=== PATIENT | female | born 1945 | race Caucasian/White ===

== ENCOUNTER 2018-06-05 06:35 | Emergency (ER) | payer MEDICARE ==
[~2018-06-05 06:35] MED LIST: KET10 PO; LOR5/325 PO; OXYC-689 PO
[2018-06-05] MEDS ORDERED: fentaNYL CITR 100 MCG/2 ML AMP IVP ONE (07:15)
[2018-06-05] MEDS ORDERED: DIPHTH/TETANUS/ACEL. PERTUSSIS IM ONE (07:15)
[2018-06-05 07:33] LABS: PLATELET COUNT, AUTOMATED 261 K/uL (150-450)
[2018-06-05] MEDS ORDERED: IOPAMIDOL 76% 150 ML INFUS BTL 150 ML ONE (07:36)
[2018-06-05 07:38] LABS: INR 0.91
[2018-06-05] MEDS ORDERED: KETAMINE HCL-NS 50 MG/5 ML SYR IVP ONE ×2 (07:45→08:25)
--- NOTE | 2018-06-05 08:05 | RADIOLOGY IMAGING REPORT ---
FACILITY: [facility] PATIENT NAME: Liza Costa : 1945 MR: [id number] V: [id number] EXAM DATE: ORDERING PHYSICIAN: BEULAH MOE TECHNOLOGIST: Location: [facility] Patient: Liza Costa : 1945 Visit/Account:[id number] Date of Sevice: 06/05/2018 SHOULDER 1 VIEW RIGHT HISTORY: Mid humerus ecchymoses. Evaluate for fracture. COMPARISON: None. TECHNIQUE: AP view of the right shoulder. FINDINGS: There is a mildly comminuted fracture through the surgical neck of the humerus and proximal humeral diaphysis. There is degenerative change of the acromioclavicular and glenohumeral joints. The visible thorax is normal. There are old fifth and sixth lateral right rib fractures. IMPRESSION: 1. Comminuted fracture involving the right humeral neck and proximal diaphysis. Report Dictated By: Arianna Gotti at 06/05/2018 7:52 AM Report E-Signed By: Arianna Gotti at 06/05/2018 8:01 AM WSN:[id number]
--- NOTE | 2018-06-05 08:23 | EKG ---
FACILITY: [facility] [place] PATIENT NAME: LALIT WELLINGTON : [id number] MR: [id number] V: [id number] EXAM DATE: ORDERING PHYSICIAN: BEULAH MOE TECHNOLOGIST: KATY Mulligan Reason : TRAUMA-FALL Blood Pressure : / mmHG Vent. Rate : 083 BPM Atrial Rate : 083 BPM P-R Int : 138 ms QRS Dur : 076 ms QT Int : 378 ms P-R-T Axes : 075 048 052 degrees QTc Int : 444 ms Sinus rhythm with premature atrial complexes Nonspecific ST and T wave abnormality Abnormal ECG No previous ECGs available Confirmed by JESUSITA PATEL ([id number]) on 06/05/2018 12:33:25 PM Referred By: ABHI Confirmed By:JESUSITA PATEL
--- NOTE | 2018-06-05 08:59 | RADIOLOGY IMAGING REPORT ---
[place] [facility] [place] Liza Costa : 1945 MR: [id number] V: [id number] EXAM DATE: ORDERING PHYSICIAN: BEULAH MOE TECHNOLOGIST: Location: [facility] [place] Patient: Liza Costa : 1945 Visit/Account:[id number] Date of Sevice: 06/05/2018 HUMERUS RIGHT Indication: Pain after fall Comparison: None Available FINDINGS: There is a mildly comminuted oblique fracture of the surgical neck of the humeral head. There is appr oximately one bone's width of displacement. There is no focal soft tissue abnormality. No evidence of radiopaque foreign body. IMPRESSION: Comminuted mildly displaced oblique fracture of the humeral neck Report Dictated By: Vlad Mcmahon at 06/05/2018 8:54 AM Report E-Signed By: Vlad Mcmahon at 06/05/2018 8:55 AM WSN:[id number]
--- NOTE | 2018-06-05 09:03 | RADIOLOGY IMAGING REPORT ---
FAC[facility] PATIENT NAME: Liza Costa : 1945 MR: [id number] V: [id number] EXAM DATE: ORDERING PHYSICIAN: BEULAH MOE TECHNOLOGIST: Location: [facility] [place] Patient: Liza Costa : 1945 Visit/Account:[id number] Date of Sevice: 06/05/2018 CT Head without contrast and CT Cervical spine: Indication: Fall Comparison: None available Technique: CT head: Axial CT images were obtained through the brain from the skull base to the verte x without administration of IV contrast. Reformatted coronal and sagittal images were also obtained. Technique: CT cervical spine: Axial CT imaging of the cervical spine was performed. 2-D sagittal and coronal CT reformats were also obtained. One of the following dose optimization techniques was utilized in the performance of this exam: autom ated exposure control; adjustment of the mA and/or kV according to the patient's size; or use of an i terative reconstruction technique. Specific details can be referenced in the facility's radiology CT exam operational policy. FINDINGS: CT head: No evidence of mass, mass effect, or midline shift. No acute intracranial hemorrhage or acute territorial infarction. There are moderate periventricular deep white matter chronic ischemic changes. There is a focal hypodensity within the right basal ganglia consistent with remote lacunar infarct The visualized paranasal sinuses and mastoid air cells are clear. CT cervical spine: No cervical spine fracture or acute subluxation is identified.. The prevertebral soft tissues appear unremarkable. The vertebral body heights are well maintained. Severe degenerative disc space disease noted at C5-6 with posteriorly projecting osteophytes causing moderate central canal stenosis and severe left-sided neural foraminal narrowing There are extensive carotid calcifications, there is a dense circumferential calcification noted at t he left carotid bulb. IMPRESSION: 1. No acute intracranial abnormality. 2. No acute osseous or acute alignment abnormality of the cervical spine. 3. Incidental findings as described Report Dictated By: Vlad Mcmahon at 06/05/2018 8:56 AM Report E-Signed By: Vlad Mcmahon at 06/05/2018 9:00 AM WSN:[id number]
--- NOTE | 2018-06-05 09:04 | RADIOLOGY IMAGING REPORT ---
[place] [facility] [place]: Liza Costa : 1945 MR: [id number] V: [id number] EXAM DATE: ORDERING PHYSICIAN: BEULAH MOE TECHNOLOGIST: Location: [facility] Patient: Liza Costa : 1945 Visit/Account:[id number] Date of Sevice: 06/05/2018 CT Head without contrast and CT Cervical spine: Indication: Fall Comparison: None available Technique: CT head: Axial CT images were obtained through the brain from the skull base to the verte x without administration of IV contrast. Reformatted coronal and sagittal images were also obtained. Technique: CT cervical spine: Axial CT imaging of the cervical spine was performed. 2-D sagittal and coronal CT reformats were also obtained. One of the following dose optimization techniques was utilized in the performance of this exam: autom ated exposure control; adjustment of the mA and/or kV according to the patient's size; or use of an i terative reconstruction technique. Specific details can be referenced in the facility's radiology CT exam operational policy. FINDINGS: CT head: No evidence of mass, mass effect, or midline shift. No acute intracranial hemorrhage or acute territorial infarction. There are moderate periventricular deep white matter chronic ischemic changes. There is a focal hypodensity within the right basal ganglia consistent with remote lacunar infarct The visualized paranasal sinuses and mastoid air cells are clear. CT cervical spine: No cervical spine fracture or acute subluxation is identified.. The prevertebral soft tissues appear unremarkable. The vertebral body heights are well maintained. Severe degenerative disc space disease noted at C5-6 with posteriorly projecting osteophytes causing moderate central canal stenosis and severe left-sided neural foraminal narrowing There are extensive carotid calcifications, there is a dense circumferential calcification noted at t he left carotid bulb. IMPRESSION: 1. No acute intracranial abnormality. 2. No acute osseous or acute alignment abnormality of the cervical spine. 3. Incidental findings as described Report Dictated By: Vlad Mcmahon at 06/05/2018 8:56 AM Report E-Signed By: Vlad Mcmahon at 06/05/2018 9:00 AM WSN:[id number]
--- NOTE | 2018-06-05 09:17 | RADIOLOGY IMAGING REPORT ---
FACILITY: [facility] PATIENT NAME: Liza Costa : 1945 MR: [id number] V: [id number] EXAM DATE: ORDERING PHYSICIAN: BEULAH MOE TECHNOLOGIST: Location: [facility] Patient: Liza Costa : 1945 Visit/Account:[id number] Date of Sevice: 06/05/2018 CT CHEST ABDOMEN PELVIS W/CON HISTORY: fall, flank and back ecchymosis, c=spine pain TECHNIQUE: CT chest, abdomen and pelvis with intravenous contrast. One of the following dose optimization techniques was utilized in the performance of this exam: Autom ated exposure control; adjustment of the mA and/or kV according to the patient's size; or use of an i terative reconstruction technique. Specific details can be referenced in the facility's radiology C T exam operational policy. CONTRAST: 85 mL Isovue-370 COMPARISON: CT chest 02/05/2014 FINDINGS: CHEST: Heart/vessels: The heart is normal in size. Coronary tail calcifications are present. The thoracic a drea is nondilated with scattered atherosclerotic change. Mediastinum: Negative. Lymph nodes: Negative. Lungs/pleura: Reidentified and stable in appearance is mild scarring and fibrosis at the left apex. Mild emphysematous changes are noted at the lung bases with stable scarring. Bones/soft tissues: There is mild wedge deformity of T6. This is unchanged when compared to 2013 ABDOMEN/PELVIS: Hepatobiliary: Negative. Spleen: Negative. Adrenals: Negative. Pancreas: There are scattered calcifications noted within the pancreatic head and body consistent wi th sequelae of chronic pancreatitis. Kidneys/: Negative. GI: Negative. Vessels/spaces/nodes: Negative. Bones/soft tissues: Negative. IMPRESSION: No acute abnormality noted within the chest abdomen and pelvis. Incidental findings as described Report Dictated By: Vlad Mcmahon at 06/05/2018 9:00 AM Report E-Signed By: Vlad Mcmahon at 06/05/2018 9:13 AM WSN:[id number]
[2018-06-05] MEDS: KETAMINE HCL-NS 50 MG/5 ML SYR IVP ONE ×2 (09:43→10:18)
[2018-06-05] MEDS ORDERED: TRAM-420 PO (10:48)
--- NOTE | 2018-06-05 10:48 | ER Report ---
History and Physical Time Seen By MD: 07:30 Hx. of Stated Complaint: fall HPI/ROS CHIEF COMPLAINT: Fall last evening, rate arm pain, ecchymosis of the flank, rib pain HISTORY OF PRESENT ILLNESS: Patient is a 72-year-old female here with complaints of right shoulder and right proximal humerus pain, ecchymosis of the flank and right-sided rib pain after a fall last evening. Patient denies loss of consciousness. She has intact sensation the distal extremity. Ears a gross deformity of the proximal humerus with decreased range of motion of the shoulder due to pain. Capillary refill less than 2 seconds. REVIEW OF SYSTEMS: Constitutional: No fever, no chills. Eyes: No discharge. ENT: No sore throat. Cardiovascular: + right sided chest pain, no palpitations. Respiratory: No cough, no shortness of breath. Gastrointestinal: No abdominal pain, no vomiting. Genitourinary: No hematuria. Musculoskeletal: No back pain, + right shoulder and proximal humerus pain Skin: No rashes. Neurological: NV intact in distal RUE Allergies: Coded Allergies: adhesive tape (Verified Allergy, Intermediate, REDNESS, 06/05/18) Home Meds Active Scripts Tramadol Hcl (TRAMADOL HCL) 50 Mg Tablet, 50 MG PO Q6H PRN for PAIN, #20 TAB 0 Refills Prov:BEULAH MOE 06/05/18 Reported Medications Ketorolac Tromethamine (Toradol) 10 Mg Tab, 10 MG PO Q6H, #16 0 Refills 03/05/09 Acetaminophen/Hydrocodone (Lortab 5/325 Mg) 5 Mg/325 Mg Tab, 1 TAB PO Q4-6H, #30 0 Refills 03/05/09 Oxycodone Hcl/Acetaminophen (Percocet 7.5/325 Mg) 7.5 Mg/325 Mg Tab, 1 - 2 TAB PO Q6-8H PRN, #20 0 Refills 12/07/07 Constitutional Physical Exam General Appearance: The patient is alert, has no immediate need for airway protection and no signs of toxicity. Uncomfortable appearing Eyes: Pupils equal and round no pallor or injection. ENT, Mouth: Mucous membranes are moist. Respiratory: There are no retractions, lungs are clear to auscultation. Cardiovascular: Regular rate and rhythm. Gastrointestinal: Abdomen is soft and non tender, no masses, bowel sounds normal. Neurological: NV exam intact in distal extremity, + AAO x 3 Skin: + ecchymosis of right flank Musculoskeletal: Neck is supple non tender. + decreased ROM of right upper extremity and shoulder DIFFERENTIAL DIAGNOSIS: After history and physical exam differential diagnosis was considered for fracture, contusion, sprain, dislocation Medical Decision Making Data Points Laboratory Hematology Test 06/05/18 07:21 06/05/18 08:31 Red Blood Count 4.57 M/uL (4.17-5.56) Mean Corpuscular Volume 94.0 fL (80.0-96.0) Mean Corpuscular Hemoglobin 31.9 pg (26.0-33.0) Mean Corpuscular Hemoglobin Concent 33.9 g/dL (32.0-36.0) Red Cell Distribution Width 13.9 % (11.5-14.5) Mean Platelet Volume 7.8 fL (7.2-11.1) Neutrophils (%) (Auto) 82.1 % (39.4-72.5) Lymphocytes (%) (Auto) 10.8 % (17.6-49.6) Monocytes (%) (Auto) 6.5 % (4.1-12.4) Eosinophils (%) (Auto) 0.1 % (0.4-6.7) Basophils (%) (Auto) 0.5 % (0.3-1.4) Nucleated RBC Relative Count (auto) 0.0 /100WBC Neutrophils # (Auto) 7.7 K/uL (2.0-7.4) Lymphocytes # (Auto) 1.0 K/uL (1.3-3.6) Monocytes # (Auto) 0.6 K/uL (0.3-1.0) Eosinophils # (Auto) 0.0 K/uL (0.0-0.5) Basophils # (Auto) 0.0 K/uL (0.0-0.1) Nucleated RBC Absolute Count (auto) 0.00 K/uL Prothrombin Time 12.3 seconds (12.0-14.4) Prothromb Time International Ratio 0.91 Activated Partial Thromboplast Time 26 seconds (23-35) Sodium Level 134 mmol/L (137-145) Potassium Level 3.4 mmol/L (3.5-5.0) Chloride Level 103 mmol/L (98-107) Carbon Dioxide Level 23 mmol/L (22-31) Blood Urea Nitrogen 11 mg/dl (7-18) Creatinine 0.90 mg/dl (0.52-1.04) Glomerular Filtration Rate Calc > 60.0 Random Glucose 116 mg/dl (75-110) Lactate 1.7 mmol/L (0.7-2.1) Calcium Level 8.9 mg/dl (8.4-10.2) Total Bilirubin 0.3 mg/dl (0.2-1.3) Aspartate Amino Transf (AST/SGOT) 27 U/L (0-35) Alanine Aminotransferase (ALT/SGPT) 22 U/L (0-56) Alkaline Phosphatase 63 U/L (0-126) Total Protein 6.6 g/dl (6.3-8.2) Albumin 4.2 g/dl (3.5-5.0) Lipase 343 U/L (23-300) Serum Alcohol 49 mg/dl Urine Color Colorless Urine Clarity Clear Urine pH 7.0 pH (4.8-9.5) Urine Specific [place] 1.016 Urine Protein Negative mg/dL (NEGATIVE) Urine Glucose (UA) Negative mg/dL (NEGATIVE) Urine Ketones Negative mg/dL (NEGATIVE) Urine Blood Small (NEGATIVE) Urine Nitrite Negative (NEGATIVE) Urine Bilirubin Negative (NEGATIVE) Urine Urobilinogen Negative mg/dL (0.2-1.9) Urine Leukocyte Esterase Negative (NEGATIVE) Urine RBC <1 /HPF (0-2/HPF) Urine WBC <1 /HPF (0-5/HPF) Urine Squamous Epithelial Cells None /LPF (NONE-FEW) Urine Bacteria Negative /HPF (NONE-FEW) Urine Mucus None /HPF (NONE-FEW) Chemistry Test 06/05/18 07:21 06/05/18 08:31 White Blood Count 9.4 k/uL (4.5-11.0) Red Blood Count 4.57 M/uL (4.17-5.56) Hemoglobin 14.6 g/dL (12.0-16.0) Hematocrit 43.0 % (34.0-47.0) Mean Corpuscular Volume 94.0 fL (80.0-96.0) Mean Corpuscular Hemoglobin 31.9 pg (26.0-33.0) Mean Corpuscular Hemoglobin Concent 33.9 g/dL (32.0-36.0) Red Cell Distribution Width 13.9 % (11.5-14.5) Platelet Count 261 K/uL (150-450) Mean Platelet Volume 7.8 fL (7.2-11.1) Neutrophils (%) (Auto) 82.1 % (39.4-72.5) Lymphocytes (%) (Auto) 10.8 % (17.6-49.6) Monocytes (%) (Auto) 6.5 % (4.1-12.4) Eosinophils (%) (Auto) 0.1 % (0.4-6.7) Basophils (%) (Auto) 0.5 % (0.3-1.4) Nucleated RBC Relative Count (auto) 0.0 /100WBC Neutrophils # (Auto) 7.7 K/uL (2.0-7.4) Lymphocytes # (Auto) 1.0 K/uL (1.3-3.6) Monocytes # (Auto) 0.6 K/uL (0.3-1.0) Eosinophils # (Auto) 0.0 K/uL (0.0-0.5) Basophils # (Auto) 0.0 K/uL (0.0-0.1) Nucleated RBC Absolute Count (auto) 0.00 K/uL Prothrombin Time 12.3 seconds (12.0-14.4) Prothromb Time International Ratio 0.91 Activated Partial Thromboplast Time 26 seconds (23-35) Glomerular Filtration Rate Calc > 60.0 Lactate 1.7 mmol/L (0.7-2.1) Calcium Level 8.9 mg/dl (8.4-10.2) Total Bilirubin 0.3 mg/dl (0.2-1.3) Aspartate Amino Transf (AST/SGOT) 27 U/L (0-35) Alanine Aminotransferase (ALT/SGPT) 22 U/L (0-56) Alkaline Phosphatase 63 U/L (0-126) Total Protein 6.6 g/dl (6.3-8.2) Albumin 4.2 g/dl (3.5-5.0) Lipase 343 U/L (23-300) Serum Alcohol 49 mg/dl Urine Color Colorless Urine Clarity Clear Urine pH 7.0 pH (4.8-9.5) Urine Specific [place] 1.016 Urine Protein Negative mg/dL (NEGATIVE) Urine Glucose (UA) Negative mg/dL (NEGATIVE) Urine Ketones Negative mg/dL (NEGATIVE) Urine Blood Small (NEGATIVE) Urine Nitrite Negative (NEGATIVE) Urine Bilirubin Negative (NEGATIVE) Urine Urobilinogen Negative mg/dL (0.2-1.9) Urine Leukocyte Esterase Negative (NEGATIVE) Urine RBC <1 /HPF (0-2/HPF) Urine WBC <1 /HPF (0-5/HPF) Urine Squamous Epithelial Cells None /LPF (NONE-FEW) Urine Bacteria Negative /HPF (NONE-FEW) Urine Mucus None /HPF (NONE-FEW) Coagulation Test 06/05/18 07:21 Prothrombin Time 12.3 seconds Prothromb Time International Ratio 0.91 Activated Partial Thromboplast Time 26 seconds Toxicology Test 06/05/18 07:21 Serum Alcohol 49 mg/dl Urinalysis Test 06/05/18 08:31 Urine Color Colorless Urine Clarity Clear Urine pH 7.0 pH (4.8-9.5) Urine Specific [place] 1.016 Urine Protein Negative mg/dL (NEGATIVE) Urine Glucose (UA) Negative mg/dL (NEGATIVE) Urine Ketones Negative mg/dL (NEGATIVE) Urine Blood Small (NEGATIVE) Urine Nitrite Negative (NEGATIVE) Urine Bilirubin Negative (NEGATIVE) Urine Urobilinogen Negative mg/dL (0.2-1.9) Urine Leukocyte Esterase Negative (NEGATIVE) Urine RBC <1 /HPF (0-2/HPF) Urine WBC <1 /HPF (0-5/HPF) Urine Squamous Epithelial Cells None /LPF (NONE-FEW) Urine Bacteria Negative /HPF (NONE-FEW) Urine Mucus None /HPF (NONE-FEW) EKG/Imaging Imaging PATIENT NAME: Liza Costa : 1945 MR: [id number] V: [id number] EXAM DATE: ORDERING PHYSICIAN: BEULAH MOE TECHNOLOGIST: Location: [facility] Patient: Liza Costa : 1945 Visit/Account:[id number] Date of Sevice: 06/05/2018 HUMERUS RIGHT Indication: Pain after fall Comparison: None Available FINDINGS: There is a mildly comminuted oblique fracture of the surgical neck of the humeral head. There is approximately one bone's width of displacement. There is no focal soft tissue abnormality. No evidence of radiopaque foreign body. IMPRESSION: Comminuted mildly displaced oblique fracture of the humeral neck ED Course/Re-evaluation ED Course Patient is a 72-year-old female here with complaints of right upper extremity proximal humerus and shoulder pain with range of motion after a fall last evening without lost consciousness, change in mental status, neck pain. Patient did have tenderness on palpation of the right lateral ribs, ecchymosis of the flank prompting CT trauma imaging. E FAST exam was negative at time of arrival. X-rays were completed of the right upper extremity which demonstrated a comminuted proximal humeral fracture without dislocation. Patient was given analgesia, placed in a shoulder sling and posterior Ortho-Glass splint for stability. Patient is neurovascularly intact after the procedure and tolerated this well. Recommend close orthopedic follow-up in the next several days. Return precautions provided. Procedure Patient was given ketamine for sedation in order to apply a posterior right humerus upper extremity Ortho-Glass splint for stability, patient was placed in a shoulder sling for stabilization. Patient is neurovascularly intact after application of the long-arm splint. Patient tolerated procedure well. Decision to Disposition Date: Jun 05, 2018 Decision to Disposition Time: 10:45 Depart Departure Latest Vital Signs Impression: Primary Impression: Fx humeral neck Condition: Improved Disposition: HOME OR SELF-CARE Referrals: TSERING ALAS DO (PCP) New Scripts Tramadol Hcl (TRAMADOL HCL) 50 Mg Tablet 50 MG PO Q6H PRN for PAIN, #20 TAB 0 Refills Prov: BEULAH MOE DO 06/05/18 Patient Instructions: Proximal Humerus Fracture (ED) Additional Instructions: Please follow up closely with [facility]. You fractured your humerus of the right arm which will need to be evaluated by orthopedics in the next week. Please return immediately if you develop numbness, increased pain, motor weakness, increased swelling, discoloration. I discussed your fracture with Dr. Miller who is one of the orthopedic surgeons with [facility]. You may take Tylenol or ibuprofen as needed for primary pain control, tramadol as needed for breakthrough pain control 1 tablet every 6- 8 hours. BEULAH MOE DO Jun 05, 2018 10:48
[2018-06-05 10:52] VITALS: BP 163/120
[2018-06-05] MEDS ORDERED: traMADol 50 MG TAB PO ONE (11:10)
[2018-06-05] MEDS ORDERED: ONDANSETRON 4 MG ODT TABDP SL ONE (11:10)
[2018-06-05] MEDS ORDERED: ACETAMINOPHEN 500 MG TAB PO ONE (11:10)
== END 2018-06-05 12:08 | disposition home or self-care (01) ==
LOC: ER 07:16
DX: S42.351A Displaced comminuted fracture of shaft of humerus, right arm, initial encounter for closed fracture (principal); W19.XXXA Unspecified fall, initial encounter
CPT/HCPCS: 29105; 70450; 71260; 72125; 73030; 73060; 74177; 81001; 83605; 83690; 85025; 85610; 85730; 90471; 90715; 93005; 96374; 96375; 96376; 99284; A9270; G0480; J3010; J3490; L0172; L3982; Q0162; Q9967; 80320; 82040; 82247; 82310; 82374; 82435; 82565; 82947; 84075; 84132; 84155; 84295; 84450; 84460; 84520; A4565; S0119

== ENCOUNTER 2018-09-14 08:59 | Emergency (ER) | payer MEDICARE ==
[~2018-09-14 08:59] MED LIST changes: +TRAM-420 PO
--- NOTE | 2018-09-14 10:11 | RADIOLOGY IMAGING REPORT ---
FACILITY: [facility] [place] PATIENT NAME: Liza Costa : 1945 MR: [id number] V: [id number] EXAM DATE: ORDERING PHYSICIAN: DEJON STONE TECHNOLOGIST: Location: [facility] - [place], [place] Patient: Liza Costa : 1945 Visit/Account:[id number] Date of Sevice: 09/14/2018 FOREARM LEFT HISTORY: Fall with pain COMPARISON: None FINDINGS: AP and lateral views of the left forearm demonstrates the presence of a fracture of the dis flores left ulna. The fracture is mildly displaced. The remainder of the ulna is unremarkable. There is no evidence of abnormality of the radius. The carpal bones are unremarkable. IMPRESSION: Mildly displaced fracture of distal left ulna. Report Dictated By: Enrique Fairchild at 09/14/2018 10:01 AM Report E-Signed By: Enrique Fairchild at 09/14/2018 10:03 AM WSN:[id number]
--- NOTE | 2018-09-14 10:27 | ER Report ---
History and Physical Time Seen By MD: 10:23 Hx. of Stated Complaint: PATIENT REPORTS THAT SHE FELL OFF THE COUCH IN HER SLEEP LAST NIGHT. SHE IS REPORTING LEFT FOREARM PAIN HPI/ROS CHIEF COMPLAINT: Left wrist pain HISTORY OF PRESENT ILLNESS: 72-year-old female patient presents to emergency room with complaint of left wrist pain. Patient states that she fell asleep last night on the couch. She woke up this morning laying on the floor with her pain wrist hurting. Patient denies having any numbness or tingling. She states that she has significant amounts of pain. She states that any type of movement seems to make the pain worse. She did call friend who brought her into the emergency room for evaluation. Patient states she is not taking any medication for this. REVIEW OF SYSTEMS: Respiratory: No cough, no dyspnea. Cardiovascular: No chest pain, no palpitations. Gastrointestinal: No vomiting, no abdominal pain. Musculoskeletal: As noted above Allergies: Coded Allergies: adhesive tape (Verified Allergy, Intermediate, REDNESS, 06/05/18) Home Meds Active Scripts Lisinopril (LISINOPRIL) 10 Mg Tablet, 10 MG PO QDAY, #30 TAB Prov:TORI BETHEA [facility] 09/14/18 Hydrocodone Bit/Acetaminophen (HYDROCODON-ACETAMINOPHEN 5-325) 1 Each Tablet, 1 EACH PO Q4-6H PRN for PAIN, #12 TAB Prov:TORI BETHEA [facility] 09/14/18 Tramadol Hcl (TRAMADOL HCL) 50 Mg Tablet, 50 MG PO Q6H PRN for PAIN, #20 TAB 0 Refills Prov:BEULAH MOE DO 06/05/18 Reported Medications Ketorolac Tromethamine (Toradol) 10 Mg Tab, 10 MG PO Q6H, #16 0 Refills 03/05/09 Acetaminophen/Hydrocodone (Lortab 5/325 Mg) 5 Mg/325 Mg Tab, 1 TAB PO Q4-6H, #30 0 Refills 03/05/09 Oxycodone Hcl/Acetaminophen (Percocet 7.5/325 Mg) 7.5 Mg/325 Mg Tab, 1 - 2 TAB PO Q6-8H PRN, #20 0 Refills 12/07/07 Past Medical/Surgical History Patient has a past medical history of ID, hypertension, asthma, pneumonia, arthritis, wrist fracture, depression, basal cell skin cancer. Patient has a surgical history of a vaginal hysterectomy. Reviewed Nurses Notes: Yes Constitutional Vital Sign - Last 24 Hours 09/14/18 09/14/18 09/14/18 09/14/18 09:02 09:05 09:29 09:30 Temp 98.5 Pulse 71 71 Resp 24 B/P (MAP) 174/117 (136) 174/117 180/117 (138) Pulse Ox 91 92 O2 Delivery Room Air 09/14/18 09/14/18 09/14/18 09/14/18 09:59 10:00 10:29 10:30 Pulse 65 69 B/P (MAP) 198/120 (146) 223/128 (159) Pulse Ox 88 89 09/14/18 09/14/18 10:30 11:00 Pulse 69 B/P (MAP) 223/128 (159) 208/136 (160) Pulse Ox 89 Physical Exam General Appearance: The patient is alert, has no immediate need for airway protection and no current signs of toxicity. Respiratory: Chest is non tender, lungs are clear to auscultation. Cardiac: regular rate and rhythm Gastrointestinal: Abdomen is soft and non tender, no masses, bowel sounds normal. Musculoskeletal: Neck: Neck is supple and non tender. Extremities have full range of motion and are non tender. Patient does have pain to the left wrist, she has tenderness to palpation. Any type of movement seems to make the pain worse. Skin: No rashes or lesions. Pain has skin tear to the left forearm. DIFFERENTIAL DIAGNOSIS: After history and physical exam differential diagnosis was considered for left wrist fracture, contusion, hypertension, skin care. Medical Decision Making EKG/Imaging Imaging FOREARM LEFT HISTORY: Fall with pain COMPARISON: None FINDINGS: AP and lateral views of the left forearm demonstrates the presence of a fracture of the distal left ulna. The fracture is mildly displaced. The remainder of the ulna is unremarkable. There is no evidence of abnormality of the radius. The carpal bones are unremarkable. IMPRESSION: Mildly displaced fracture of distal left ulna. Report Dictated By: Enrique Fairchild at 09/14/2018 10:01 AM Report E-Signed By: Enrique Fairchild at 09/14/2018 10:03 AM ED Course/Re-evaluation ED Course Patient was admitted to examine, history of physical were obtained. Differential diagnoses were considered. On examination lungs are clear, heart is regular, abdomen is soft nontender. Patient does have skin tear to the left forearm. She also has tenderness to the left wrist. X-rays done of the left wrist. That was positive for a distal ulnar fracture. LAT was applied to the skin tear. That was cleaned and then that was pulled back into place. That wasn't covered with a Tegaderm. The patient was placed in a sugar tong splint as described below. Patient tolerated procedure well. Patient was placed in a sling. She was given a dose of lisinopril here in the emergency room as well as the hydrocodone. Patient's blood pressure was excessively high, following the placement of the splint she was 186/96. Patient is to follow-up with her primary care provider in regards to her blood pressure. Patient's follow-up Dr. Rowell in regards to her wrist fracture. She's read the splint until she follows up with them. Patient verbalized understanding and agreement with plan. Procedure: Splint placement. A sugar tong static splint was applied. After application of the splint I re-ex amined the patient. The splint was adequately immobilizing the joint and distal to the splint the patient's circulation and sensation was intact. Decision to Disposition Date: Sep 14, 2018 Decision to Disposition Time: 11:13 Depart Departure Latest Vital Signs Vital Signs Date Time Temp Pulse Resp B/P (MAP) Pulse Ox O2 Delivery O2 Flow Rate FiO2 09/14/18 11:00 208/136 (160) 09/14/18 10:30 69 89 09/14/18 09:05 98.5 24 Room Air Impression: Primary Impression: Ulna distal fracture Additional Impression: Hypertension Condition: Improved Disposition: HOME OR SELF-CARE Referrals: TSERING ALAS DO (PCP) MAURI ROWELL MD New Scripts Lisinopril (LISINOPRIL) 10 Mg Tablet 10 MG PO QDAY, #30 TAB Prov: TORI BETHEA 09/14/18 Hydrocodone Bit/Acetaminophen (HYDROCODON-ACETAMINOPHEN 5-325) 1 Each Tablet 1 EACH PO Q4-6H PRN for PAIN, #12 TAB Prov: TORI BETHEA 09/14/18 Patient Instructions: Hypertension (ED), Wrist Fracture in Adults (ED) Additional Instructions: Limit activity by pain. Ice the wrist through the splint; 2-3 times a day for 20-30 minutes. If the splint is feeling too tight you may loosen the abdulaziz wrap and rewrap it. Follow up with [facility], call tomorrow to make an appointment. Keep the splint dry, wrap it with a bag and tape to keep the water out. Return to the ER with uncontrollable pain or numbness to the hand. You may take Ibuprofen as needed for pain in addition to the pain medication. Don't take any additional Tylenol while on the pain medication. Take your blood pressure medication as prescribed. Follow up with Dr. Alas in the next week for evaluation of you high blood pressure. Problem Qualifiers Primary Impression: Ulna distal fracture Encounter type: initial encounter Fracture type: closed Fracture morphology: other fracture Laterality: left Qualified Codes: S52.692A - Other fracture of lower end of left ulna, initial encounter for closed fracture Additional Impression: Hypertension Hypertension type: essential hypertension Qualified Codes: I10 - Essential (primary) hypertension TORI BETHEA Sep 14, 2018 10:27
[2018-09-14] MEDS ORDERED: TETRACAIN/EPI/LIDO GEL 3ML SYR TP ONE (10:35)
[2018-09-14 11:10] VITALS: BP 196/114
[2018-09-14] MEDS ORDERED: APAP/HYDROCODONE 325/5 TAB PO ONE (11:15)
[2018-09-14] MEDS ORDERED: LISINOPRIL 10 MG TAB PO ONE (11:15)
[2018-09-14] MEDS ORDERED: HYDR-385 PO (11:19)
[2018-09-14] MEDS ORDERED: LISI-362 PO (11:19)
== END 2018-09-14 11:39 | disposition home or self-care (01) ==
LOC: ER 10:37
DX: S52.692A Other fracture of lower end of left ulna, initial encounter for closed fracture (principal); I10 Essential (primary) hypertension
CPT/HCPCS: 29125; 73090; 99283; A4565; A9270